=== PATIENT | male | born 1985 | race Two or more races ===

== ENCOUNTER 2024-01-01 10:24 | Emergency (ER) | payer MEDICAID, OTHER ==
[~2024-01-01] VITALS: Ht 167.6 cm; Wt 98.5 kg
[2024-01-01 11:10] VITALS: BP 145/79; PULSE 66; RESP 18; TEMP 98.4; O2SAT 98
[2024-01-01] MEDS ORDERED: CEPH500C PO (11:27)
[2024-01-01] MEDS ORDERED: PRED20TA2 PO (11:27)
[2024-01-01] MEDS ORDERED: PROM1SOL4 PO (11:27)
== END 2024-01-01 11:36 | disposition home or self-care (01) ==
LOC: ER 10:24
DX: J20.9 Acute bronchitis, unspecified (principal); F17.210 Nicotine dependence, cigarettes, uncomplicated; F15.90 Other stimulant use, unspecified, uncomplicated
CPT/HCPCS: 71046; 82962